=== PATIENT | male | born 1975 | race Caucasian/White ===

== ENCOUNTER 2017-08-17 07:41 | Emergency (ER) | payer SELFPAY ==
[~2017-08-17] VITALS: Ht 182.9 cm; Wt 102.1 kg
--- NOTE | 2017-08-17 07:49 | NUR ---
BB SELF FOR SOB AFTER SMOKING MARIJUANA. SATING WELL ON ROOM AIR AT THIS TIME. CONNECTED PT TO TELE MONITOR
--- NOTE | 2017-08-17 08:43 | NUR ---
Pt ambulatory with a steady gait.
--- NOTE | 2017-08-17 08:43 | NUR ---
PT INSTRUCTED NOT TO DRIVE. PT AGREED AND VERBALIZES RISKS AND UNDERSTANDING. ALL QUESTIONS ANSWERED.
--- NOTE | 2017-08-17 08:43 | NUR ---
Patient discharged to home in stable condition. Written and verbal after care instructions given. Patient verbalizes understanding of instruction.
[2017-08-17 08:44] VITALS: BP 139/86
== END 2017-08-17 08:45 | disposition home or self-care (01) ==
LOC: ER 07:43
DX: F12.929 Cannabis use, unspecified with intoxication, unspecified (principal); F41.0 Panic disorder [episodic paroxysmal anxiety]; R06.02 Shortness of breath; F17.200 Nicotine dependence, unspecified, uncomplicated
CPT/HCPCS: 93005; 99283; A4606; Z7610